=== PATIENT | female | born 1960 | race Caucasian/White ===

== ENCOUNTER 2016-06-09 09:24 | Emergency (ER) | payer OTHER ==
[~2016-06-09] VITALS: Ht 152.4 cm; Wt 94.6 kg
[~2016-06-09 09:24] MED LIST: ACET-1256 PO; ALBU1AER9 INH; BUPR200T2 PO; CALC-20 PO; FOLI1TAB7 PO; IMD/2 PO; LISI-461 PO; MULT-506 PO; OMEP20CA9 PO; SERT-234 PO
[2016-06-09 09:27] VITALS: TEMP 36.7; Ht 152.4 cm; Wt 94.6 kg
[2016-06-09] MEDS ORDERED: CHOL100010 (10:01)
[2016-06-09] MEDS ORDERED: ALBU18002 INH (10:01)
[2016-06-09] MEDS ORDERED: KETOROLAC TROMETHAMINE 60 MG/2 ML VIAL IM STA (10:06)
[2016-06-09] MEDS ORDERED: DEXAMETHASONE SOD INJ 10 MG/ML VIAL IM ONE (10:15)
--- NOTE | 2016-06-09 10:40 | DIAGNOSTIC IMAGING REPORT ---
L-SPINE MIN 4 VIEWS ROUTINE CLINICAL HISTORY: Low back pain with left-sided radiculopathy. COMPARISON STUDY: No previous studies for comparison. FINDINGS: Postsurgical changes are present within the abdomen. Bilateral tubal ligation clips are visualized. No acute fractures are visualized. There is moderate to marked disc space narrowing at the L4-5 and L5-S1 levels. There is minimal anterolisthesis of L4 and L5. There are no acute fractures. No destructive lesions are visualized. IMPRESSION: 1. No acute fractures 2. Advanced degenerative changes at the L4-5 and L5-S1 levels. Electronically signed by: Edwin Redman M.D. 06/09/2016 10:38 AM Dictated Date/Time: 06/09/2016 10:37 AM
[2016-06-09] MEDS ORDERED: OXYC1TAB3 PO (11:13)
[2016-06-09] MEDS ORDERED: PRED20TA PO (11:13)
[2016-06-09] MEDS ORDERED: CYCL10TA6 PO (11:13)
--- NOTE | 2016-06-09 11:13 | EMERGENCY ROOM VISIT NOTE ---
ED Visit Note First contact with patient: 09:44 CHIEF COMPLAINT: Low back pain radiating into left leg times one day HISTORY OF PRESENT ILLNESS: Patient is a 55-year-old white female who presents to emergency department for evaluation of low back pain radiating into the left leg. She states that her symptoms started yesterday morning. She notes that when she woke up she had a twinge of some discomfort in her left low back. She thought it was from how she slept, and tried doing some stretching which acutely worsened the pain. She states the pain is located in the left low back wrapping around the left hip to her groin and radiates down the front and back of her left leg. It stops at her knee. She notes twitching and muscle spasms in her left thigh. She tried taking ibuprofen yesterday which gave her little relief. She had difficulty finding positions to get comfortable and yesterday. She tried standing in a hot shower which made her symptoms worse. Today she feels better while she is laying in stabbing pain when she sits or when she stands. She denies a prior history of breast problems or injuries. She denies any numbness, tingling or weakness into the lower extremities. No bowel or bladder incontinence. No saddle anesthesias. REVIEW OF SYSTEMS: Review of systems as per HPI. All other systems reviewed were negative. 10 systems reviewed. PMH: Electronic medical records are reviewed and summarized as above/below. See Problem List. SOCIAL HISTORY: Patient lives at home. Employed. PHYSICAL EXAM: Vital Signs: Reviewed Nurse's notes. CONSTITUTIONAL: Patient is an uncomfortable-appearing 55-year-old white female who is awake and alert and laying supine on the gurney in mild distress due to her back pain. There is significant discomfort with position changes. CARDIOVASCULAR: Regular rate and rhythm, with normal S1 and S2, no murmur or gallop or rub is heard. No carotid bruits auscultated. No JVD. Peripheral pulses easily palpable. RESPIRATORY: Breath sounds equal and clear to auscultation without wheezes, rales, or rhonchi heard. Full and equal chest expansion without accessory muscle use or retractions. ABDOMEN: Bowel sounds are present. Abdomen is soft, nontender and nondistended. INTEGUMENTARY: No lesions or rash, normal skin turgor. LYMPH: No lymphadenopathy. SPINE: Examination of the patient's back does not demonstrate any ecchymosis, abrasions or outward signs of trauma. No erythema, increased warmth or induration. Patient has no midline discomfort to palpation over the lumbar spinous processes. She does have some discomfort over the left lumbar paraspinous musculature and over the PSIS and sciatic notch. No pain on the SI joint. She has increased pain with range of motion including rotation and flexion. EXTREMITIES: Leg lengths are symmetrical. Negative logroll bilaterally. Normal strength including dorsi-flexion and plantar flexion of the great toes and ankles and flexion and extension of the knees and flexion of the hips. Positive left-sided straight leg raise testing. Lower extremity DTRs are equal and symmetrical bilaterally. Distal pulses are easily palpable. Sensation light touch is intact over the lower extremities bilaterally. EMERGENCY DEPARTMENT COURSE: Patient was medicated with Toradol and Decadron IM. Lumbar spine x-rays were obtained. She had moderate arthritic changes noted at the L4-L5 and L5-S1 levels. Urine sample was dipped, and was clean without signs of infection. X-ray findings were reviewed with the patient. Conservative care measures were discussed. She only placed on a course of prednisone and was provided a prescription for Flexeril and for oxycodone to use for pain. She was encouraged on close follow-up with her primary care provider as she may require further care and evaluation with an MRI and possible referral to orthopedic spine surgery or pain management. Findings appear consistent with low back pain with acute lumbar radiculopathy, possibly related to nerve root impingement from the arthritic changes or disc disease. I do not suspect acute compression syndrome, cauda equina, diskitis, epidural abscess, hematoma or neurovascular compromise. The patient rated her discomfort a 7/10 at discharge. L-SPINE MIN 4 VIEWS ROUTINE CLINICAL HISTORY: Low back pain with left-sided radiculopathy. COMPARISON STUDY: No previous studies for comparison. FINDINGS: Postsurgical changes are present within the abdomen. Bilateral tubal ligation clips are visualized. No acute fractures are visualized. There is moderate to marked disc space narrowing at the L4-5 and L5-S1 levels. There is minimal anterolisthesis of L4 and L5. There are no acute fractures. No destructive lesions are visualized. IMPRESSION: 1. No acute fractures 2. Advanced degenerative changes at the L4-5 and L5-S1 levels. Problem List Medical Problems: (1) Abscess of left axilla Status: Resolved (2) Anxiety State Nos Status: Chronic (3) Asthma, Unspecified Status: Chronic (4) Diabetes mellitus Status: Chronic (5) Esophageal Reflux Status: Chronic (6) History of - hypertension Status: Chronic (7) Hypertension Status: Chronic (8) SBO (small bowel obstruction) Status: Resolved (9) Ulcerative colitis Status: Chronic Surgical Problems: (1) Colectomy Status: Resolved (2) Creation of ileostomy Status: Resolved Current/Historical Medications Scheduled Bupropion (Wellbutrin Sr), 200 MG PO BID Calcium Carbonate-Vitamin D (Calcium 600 + D), 1 TAB PO BID Folic Acid (Folvite), 1 MG PO DAILY Lisinopril (Zestril), 10 MG PO DAILY Multivitamin (Multivitamin), 1 TAB PO DAILY Omeprazole (Prilosec), 20 MG PO DAILY Prednisone (Prednisone), 0 PO DAILY Sertraline (Zoloft), 200 MG PO DAILY Scheduled PRN Acetaminophen (Tylenol), 1,000 MG PO TID PRN for Pain or Fever Albuterol Sulfate (Proair Respiclick), 2 PUFFS INH Q4 PRN for ASTHMA SYMPTOMS Cyclobenzaprine Hcl (Flexeril), 10 MG PO TID PRN for Muscle Spasms Loperamide Hcl (Imodium), 2 MG PO TID PRN for Diarrhea Oxycodone Immediate Rel Tab (Roxicodone Ir), 1-2 TAB PO Q4H PRN for Severe Pain Miscellaneous Medications Cholecalciferol (Vitamin D), Unknown Dose Allergies Coded Allergies: Adhesives (Verified Allergy, Mild, 06/09/16) Hydromorphone (Verified Allergy, Mild, ITCHINESS, 06/09/16) Vital Signs Date Time Temp Pulse Resp B/P Pulse Ox O2 Delivery O2 Flow Rate FiO2 06/09/16 11:24 76 20 166/103 98 06/09/16 10:44 77 20 143/96 96 06/09/16 09:27 36.7 81 20 158/105 97 Room Air Medications Administered Medications (Trade) Dose Ordered Sig/Kristen Route Start Time Stop Time Status Last Admin Dose Admin Ketorolac Tromethamine (Toradol Inj) 60 mg NOW STAT IM 06/09/16 10:06 4/22/17 10:07 DC 06/09/16 10:14 60 MG Dexamethasone Sodium Phosphate (Decadron Inj) 10 mg NOW ONCE IM 06/09/16 10:15 06/09/16 10:16 DC 06/09/16 10:14 10 MG Departure Information Impression Primary Impression: Low back pain Additional Impression: Left lumbar radiculopathy Prescriptions Cyclobenzaprine Hcl (FLEXERIL) 10 Mg Tab 10 MG PO TID Y for Muscle Spasms, #30 TAB Prov: Latoya Burks PA 06/09/16 Oxycodone Immediate Rel Tab (ROXICODONE IR) 5 Mg Tab 1-2 TAB PO Q4H Y for Severe Pain, #25 TAB For Initial Treatment Prov: Latoya Burks PA 06/09/16 Prednisone (Prednisone) 20 Mg Tab 0 PO DAILY, #18 TAB 3 DAILY FOR 3 DAYS, THEN 2 DAILY FOR 3 DAYS, THEN 1 DAILY FOR 3 DAYS. Prov: Latoya Burks PA 06/09/16 Referrals No Doctor, Assigned (PCP) Patient Instructions My [facility] Additional Instructions Prednisone 20mg: Once daily until the prescription is finished. It is best to take this earlier in the day as some patients note occasional difficulty falling asleep when taken in the late evening. Oxycodone (OxyIR) 5mg: Take 1-2 pills every four hours for breakthrough pain. Avoid alcohol, operating machinery or dangerous equipment, working on ladders or roofs, DRIVING, or situations where being under the influence may be dangerous. It is recommended to use an nuox-fgf-ncxigbe stool softener such as Colace, 100mg twice daily while taking this medication to avoid constipation. Cyclobenzaprine (Flexeril) 10 mg: Take 1 pills 3 times daily as needed for muscle spasms.. Avoid alcohol, operating machinery or dangerous equipment, working on ladders or roofs, DRIVING, or situations where being under the influence may be dangerous. Ibuprofen(Motrin, Advil) may be used for fever or pain. Use 600mg every six hours as needed. Take with food. Avoid using more than 2400mg in a 24 hour period. Do not use 2400mg per day for more than three consecutive days without physician direction. Prolonged inappropriate use can lead to stomach upset or ulcers. This medication can be taken if you need to drive, work, or perform activities which may be dangerous when taking narcotic pain medication. (AND/OR) Acetaminophen(Tylenol) may be used for fever or pain. Use 1000mg every six hours as needed. Avoid using more than 3000mg in a 24 hour period. This medication can be taken if you need to drive, work, or perform activities which may be dangerous when taking narcotic pain medication. Rest and avoid heavy lifting until your symptoms resolve and then gradually return to full activity. A good rule of thumb is if it hurts your back to perform a certain activity, then it should be avoided until you are healthy again. A heating pad, warm compresses, or a hot shower may help with tight muscles and can be done several times a day as needed. Continue current medications. Return to the ER immediately for any numbness, tingling, severe pain, loss of control of your bowels or bladder, inability to walk, or as needed. Follow up with your primary care physician within 3-5 days for a recheck of your current condition. Problem Qualifiers
[2016-06-09 11:24] VITALS: BP 166/103; PULSE 76; O2SAT 98
== END 2016-06-09 11:25 | disposition home or self-care (01) ==
LOC: C.EDB 09:24
DX: M54.5 Low back pain (principal); M54.16 Radiculopathy, lumbar region; I10 Essential (primary) hypertension; E11.9 Type 2 diabetes mellitus without complications; K21.9 Gastro-esophageal reflux disease without esophagitis; K58.9 Irritable bowel syndrome, unspecified; J45.909 Unspecified asthma, uncomplicated; F41.9 Anxiety disorder, unspecified; Z93.2 Ileostomy status; Z87.19 Personal history of other diseases of the digestive system; Z86.19 Personal history of other infectious and parasitic diseases; Z79.899 Other long term (current) drug therapy; Z88.5 Allergy status to narcotic agent; Z91.09 Other allergy status, other than to drugs and biological substances

== ENCOUNTER → 2016-12-03 | Outpatient (CLI) | payer OTHER ==
[~2016-12-03] MED LIST changes: +ALBU18002 INH; -ALBU1AER9 INH; +CHOL100010; +OXYC1TAB3 PO; +PRED20TA PO
--- NOTE | 2016-12-06 07:45 | MAMMOGRAPHY REPORT ---
BILATERAL DIGITAL SCREENING MAMMOGRAM TOMOSYNTHESIS WITH CAD: 12/03/2016 CLINICAL HISTORY: Routine screening. Patient has no complaints. TECHNIQUE: Breast tomosynthesis in addition to standard 2D mammography was performed. Current study was also evaluated with a Computer Aided Detection (CAD) system. COMPARISON: Comparison is made to exams dated: 10/18/2014 mammogram, 10/13/2013 mammogram, 01/17/2012 mammogram, 01/17/2012 ultrasound, 01/03/2012 mammogram - [facility], and 10/14/2008. BREAST COMPOSITION: There are scattered areas of fibroglandular density in both breasts. FINDINGS: There is a asymmetry in the posterior left breast along the posterior nipple line on the M LO view, 12 cm distal to the nipple. No definite corresponding abnormality is seen on the CC view. Additional spot compression tomosynthesis views and possible ultrasound are recommended. There is a grouping of microcalcifications in the lower inner posterior left breast for which additional spot ma gnification views are recommended. There are a few benign rim calcifications elsewhere in the breasts. No other suspicious mass, archite ctural distortion or cluster of microcalcifications is seen. IMPRESSION: ACR BI-RADS CATEGORY 0: INCOMPLETE EVALUATION: NEED ADDITIONAL IMAGING EVALUATION The asymmetry in the posterior left breast on the MLO view, and small grouping of microcalcifications in the lower inner posterior left breast need additional imaging evaluation. The patient will be called to schedule an appointment. Approximately 10% of breast cancers are not detected with mammography. A negative mammographic report should not delay biopsy if a clinically suggestive mass is present. Tita Holliday M.D. ay/:12/04/2016 17:01:09 Property And Equipment Clerk: Sarah Ochoa, [facility] letter sent: Addl Imaging 0 BI-RADS Code: ACR BI-RADS Category 0: Incomplete Evaluation: Need Additional Imaging Evaluation
== END | disposition home or self-care (01) ==
LOC: C.MAMM 14:23
PROVIDERS: ATTEND Nurse Practitioner Adult Health
DX: Z12.31 Encounter for screening mammogram for malignant neoplasm of breast (principal); N64.89 Other specified disorders of breast

== ENCOUNTER → 2016-12-17 | Outpatient (CLI) | payer OTHER ==
[~2016-12-17] MED LIST changes: -OXYC1TAB3 PO; -PRED20TA PO
--- NOTE | 2016-12-17 14:57 | MAMMOGRAPHY REPORT ---
UNILATERAL LEFT DIGITAL DIAGNOSTIC MAMMOGRAM TOMOSYNTHESIS: 12/17/2016 CLINICAL HISTORY: 55-year-old woman called back from screening mammography for a right breast asymmet ry and grouped microcalcification. TECHNIQUE: Spot compression 2-D and tomosynthesis left CC and MLO views, and spot magnification left CC and ML views were obtained. COMPARISON: Comparison is made to exams dated: 12/03/2016 mammogram, 10/18/2014 mammogram, 10/13/2013 mammogram, 01/17/2012 mammogram, 01/17/2012 ultrasound, and 01/03/2012 mammogram - [facility]. BREAST COMPOSITION: There are scattered areas of fibroglandular density in the left breast. FINDINGS: The spot magnification views of the left breast demonstrate a small 3 mm grouping of puncta te and somewhat coarse microcalcifications in the lower inner posterior breast. When comparing back to available prior mammograms, the calcifications have been present and appears similar dating back t o at least 01/03/2012, suggesting benignity. Possible changes in visualization may be due to technic al parameters with current [employer] equipment and prior [employer] equipment. No other suspicious calcificati ons are seen in the visualized left breast. A 7 mm asymmetry persists in the superior posterior left breast on the spot compression MLO view. Th e corresponding tomosynthesis images has the appearance of normal fibroglandular tissue. There is no associated architectural distortion or calcification. When comparing back to prior available mammog benito, this asymmetry appears similar to the 01/03/2012 and 10/14/2008 exams, suggesting benignity. N o further workup is needed at this time. IMPRESSION: ACR-BI-RADS CATEGORY 3: PROBABLY BENIGN 1. An asymmetry in the superior posterior left breast has no associated architectural distortion and appears very similar in size and visual appearance dating back to at least 2008, therefore considere d benign. 2. A 3 mm grouping of microcalcifications in the lower inner posterior left breast appear similar da ting back to 2011, suggesting benignity. Given slight increased conspicuity, which could be due to t echnical parameters, a short interval follow-up left diagnostic mammogram including spot magnificatio n views is recommended in 6 months. These results and recommendations were discussed with the patient at the time of the exam. Approximately 10% of breast cancers are not detected with mammography. A negative mammographic report should not delay biopsy if a clinically suggestive mass is present. Tita Holliday M.D. ay/:12/17/2016 12:11:24 Fertilizer Applicator: Sarah Ochoa [facility] letter sent: Follow Up Recommended 3 BI-RADS Code: ACR-BI-RADS Category 3: Probably Benign
== END | disposition home or self-care (01) ==
LOC: C.MAMM 10:35
PROVIDERS: ATTEND Nurse Practitioner Adult Health
DX: R92.0 Mammographic microcalcification found on diagnostic imaging of breast (principal); N64.89 Other specified disorders of breast

== ENCOUNTER 2017-05-12 03:37 | Emergency (ER) | payer OTHER ==
[~2017-05-12] VITALS: Ht 152.4 cm; Wt 90.2 kg
[~2017-05-12 03:37] MED LIST changes: -CHOL100010; +CHOL100010 PO; -FOLI1TAB7 PO; +FOLI1TAB8 PO
[2017-05-12 03:40] VITALS: TEMP 37.1; Ht 152.4 cm; Wt 90.2 kg
[2017-05-12] MEDS ORDERED: ONDANSETRON INJ 2 MG/ML 2 ML VIAL IV STA ×2 (04:10→08:55)
[2017-05-12] MEDS ORDERED: MoRPHine SULFATE 4 MG/ML 1 ML CARP\\VIAL IV STA ×2 (04:10→08:55)
[2017-05-12] MEDS ORDERED: SODIUM CHLORIDE 0.9% 1000ML 1,000 ML IV STA ×2 (04:10→08:30)
--- NOTE | 2017-05-12 04:18 | EMERGENCY ROOM VISIT NOTE ---
History Report prepared by Johan: Mickie Newsome Under the Supervision of: Dr. Shyanne Gutierrez, [facility]. First contact with patient: 03:58 Chief Complaint: GI ASSESSMENT Stated Complaint: SBO History of Present Illness The patient is a 56 year old female who presents to the Emergency Room with complaints of constant abdominal pain since 1600 yesterday. She notes nausea and two episodes of vomiting. She denies any blood in her urine. She has a history of ulcerative colitis and total colectomy. She has a J-pouch and notes that she normally passes stools, though she had an irregular stool two hours ago. She denies any bloody stools. She notes they have not been consistent. She denies any fevers or chills. She believes she has a bowel obstruction, because the pain is similar to past SBO. Source of History: patient Onset: 1600 yesterday Position: abdomen Timing: constant Associated Symptoms: + nausea, + vomiting, No fevers, No chills Note: She denies any blood is urine or bloody stools. Review of Systems See HPI for pertinent positives & negatives. A total of 10 systems reviewed and were otherwise negative. Past Medical & Surgical Medical Problems: (1) Abscess of left axilla (2) Anxiety State Nos (3) Asthma, Unspecified (4) Diabetes mellitus (5) Esophageal Reflux (6) History of - hypertension (7) Hypertension (8) J pouch (9) SBO (small bowel obstruction) (10) Ulcerative colitis (11) Ulcerative colitis Surgical Problems: (1) Colectomy (2) Creation of ileostomy (3) History of total colectomy Family History Family history was reviewed; no changes noted. Social History Smoking Status: Never Smoker Alcohol Use: none Marital Status: single Housing Status: lives with family Occupation Status: employed Current/Historical Medications Scheduled Bupropion (Wellbutrin Sr), 200 MG PO BID Calcium Carbonate-Vitamin D (Calcium 600 + D), 1 TAB PO BID Cholecalciferol (Vitamin D), 1 TAB PO DAILY Citalopram Hydrobromide (Citalopram Hydrobromide), 0.5 TAB PO DAILY Folic Acid (Folvite), 1 MG PO DAILY Lisinopril (Zestril), 10 MG PO DAILY Multivitamin (Multivitamin), 1 TAB PO DAILY Scheduled PRN Acetaminophen (Tylenol), 1,000 MG PO TID PRN for Pain or Fever Albuterol Sulfate (Proair Respiclick), 2 PUFFS INH Q4 PRN for ASTHMA SYMPTOMS Loperamide Hcl (Imodium), 2 MG PO TID PRN for Diarrhea Allergies Coded Allergies: Adhesives (Verified Allergy, Mild, 05/12/17) Hydromorphone (Verified Allergy, Mild, ITCHINESS, 05/12/17) Physical Exam Vital Signs Date Time Temp Pulse Resp B/P (MAP) Pulse Ox O2 Delivery O2 Flow Rate FiO2 05/12/17 11:55 83 153/90 95 Room Air 05/12/17 10:15 73 17 157/88 97 Room Air 05/12/17 09:36 78 150/100 05/12/17 08:26 75 16 152/80 97 Room Air 05/12/17 06:58 78 14 138/100 95 Room Air 05/12/17 06:15 69 16 159/71 97 Room Air 05/12/17 04:46 76 18 161/113 96 Room Air 05/12/17 03:40 37.1 88 20 160/84 98 Room Air Physical Exam GENERAL: alert, ill-appearing, well nourished, no distress, non-toxic EYE EXAM: normal conjunctiva, PERRL and EOM's grossly intact OROPHARYNX: no exudate, no erythema, lips, buccal mucosa, and tongue normal and mucous membranes are moist NECK: supple, no nuchal rigidity, no adenopathy, non-tender LUNGS: Clear to auscultation. Normal chest wall mechanics HEART: no murmurs, S1 normal and S2 normal ABDOMEN: abdomen soft, mild generalized tenderness, decreased bowel sounds, no masses, no rebound or guarding, mild tympany to percussion. Multiple well- healed surgical scars and prior site of ostomy noted. BACK: Back is symmetrical on inspection and there is no deformity, no midline tenderness, no CVA tenderness. SKIN: no rashes and no bruising UPPER EXTREMITIES: upper extremities are grossly normal. LOWER EXTREMITIES: No pitting edema. NEURO EXAM: Normal sensorium, cranial nerves II-XII grossly intact, normal speech, no gross weakness of arms, no gross weakness of legs. Medical Decision & Procedures ER Provider Diagnostic Interpretation: Radiology results have been interpreted by the radiologist and reviewed by me. CHEST ONE VIEW PORTABLE CLINICAL HISTORY: 56 years-old Female presenting with vomiting. TECHNIQUE: Portable upright AP view of the chest was obtained. COMPARISON: 04/21/2012. FINDINGS: Cardiomediastinal silhouette normal. Lungs and pleural spaces clear. Osseous structures normal. Upper abdomen normal. IMPRESSION: 1. No acute cardiopulmonary disease. Electronically signed by: Ahmet Mac M.D. 05/12/2017 6:18 AM Dictated Date/Time: 05/12/2017 6:17 AM ABD/PELVIS IV AND ORAL CONT CLINICAL HISTORY: 56 years-old Female presenting with abd pain, n/v, clinical concern for small bowel obstruction. TECHNIQUE: Multidetector CT of the abdomen and pelvis was performed after the administration of oral and intravenous contrast. IV contrast: 120 mL of Optiray 320. A dose lowering technique was used consistent with the principles of ALARA (as low as reasonably achievable). COMPARISON: 09/17/2014. CT DOSE (mGy.cm): The estimated cumulative dose is 737.84 mGy.cm. FINDINGS: Moving Consultant topogram: Unremarkable. Lung bases: Mosaic attenuation suggest small airways disease. Minimal dependent changes likely atelectasis. Normal heart size. No pericardial or pleural effusion. Liver: Normal morphology. Suspected hepatic steatosis. No focal lesion. Patent hepatic vasculature. Biliary: No intrahepatic or extrahepatic biliary ductal dilatation. Normal gallbladder. Pancreas: Normal. Spleen: Normal. Adrenal glands: Normal. Kidneys and ureters: Nonobstructing 3 mm calculus at the lower pole the right kidney. Few subcentimeter hypodensities in the left kidney indeterminate but likely simple cysts. No left renal calculi. No hydronephrosis. Ureters normal. Bladder: Normal. Extension of the bladder towards the right pelvic sidewall suggests ligamentous laxity. Pelvic organs: Uterus normal. Ovaries not well visualized. Bowel: Postsurgical changes of suspected total proctocolectomy with ileal pouch anal anastomosis. Small bowel anastomotic suture lines also evident in the right anterior abdomen. The anastomosis at this site appears patent. Given the apposition to the anterior abdominal wall at this site and overlying infiltration, this may suggest prior site of an ostomy. Oral contrast has not transited through the entire length of small bowel. Small bowel is distended in the mid and left abdomen with a diameter of nearly 4 cm. Feces evidence in a loop of small bowel in the left lower quadrant immediately proximal to another site of an enteroenteric anastomosis (series 3 image 218). There is abrupt transition point at this site. Beyond this, small bowel is decompressed. Peritoneal cavity: Trace fluid in the abdomen between the leaves of small bowel. Trace perienteric fat stranding. No pneumoperitoneum or pneumatosis. Lymph nodes: No enlarged lymph nodes in the abdomen or pelvis. Vasculature: Atherosclerosis of the normal caliber abdominal aorta. IVC patent. Abdominal wall: Postsurgical changes in the right mid abdomen. No focal fluid collection. Diastases of the rectus abdominis with possible hernia repair. Musculoskeletal: Degenerative changes of the spine. IMPRESSION: 1. Findings consistent with small bowel obstruction at a site of an enteroenteric anastomosis in the left abdomen. 2. Postsurgical changes of total proctocolectomy with ileal pouch anal anastomosis. Two sites of enteroenteric anastomoses evident, one in the right abdomen and one in the left abdomen. 3. Reactive trace amount of abdominal ascites. No pneumatosis or evidence of perforation. 4. Nonobstructing 3 mm right renal calculus. 5. Suspected hepatic steatosis. The report will be called/faxed according to standard departmental protocol. Electronically signed by: Ahmet Mac M.D. 05/12/2017 7:35 AM Dictated Date/Time: 05/12/2017 7:24 AM Laboratory Results 05/12/17 04:00 Red Blood Count 5.07, Mean Corpuscular Volume 88.6, Mean Corpuscular Hemoglobin 30.8, Mean Corpuscular Hemoglobin Concent 34.7, Mean Platelet Volume 9.0, Neutrophils (%) (Auto) 78.1, Lymphocytes (%) (Auto) 18.2, Monocytes (%) (Auto) 2.9, Eosinophils (%) (Auto) 0.5, Basophils (%) (Auto) 0.1, Neutrophils # (Auto) 7.53, Lymphocytes # (Auto) 1.75, Monocytes # (Auto) 0.28, Eosinophils # (Auto) 0.05, Basophils # (Auto) 0.01 05/12/17 04:00 Test 05/12/17 04:00 05/12/17 04:22 White Blood Count 9.64 K/uL (4.8-10.8) Red Blood Count 5.07 M/uL (4.2-5.4) Hemoglobin 15.6 g/dL (12.0-16.0) Hematocrit 44.9 % (37-47) Mean Corpuscular Volume 88.6 fL (80-100) Mean Corpuscular Hemoglobin 30.8 pg (25-34) Mean Corpuscular Hemoglobin Concent 34.7 g/dl (32-36) Platelet Count 232 K/uL (130-400) Mean Platelet Volume 9.0 fL (7.4-10.4) Neutrophils (%) (Auto) 78.1 % Lymphocytes (%) (Auto) 18.2 % Monocytes (%) (Auto) 2.9 % Eosinophils (%) (Auto) 0.5 % Basophils (%) (Auto) 0.1 % Neutrophils # (Auto) 7.53 K/uL (1.4-6.5) Lymphocytes # (Auto) 1.75 K/uL (1.2-3.4) Monocytes # (Auto) 0.28 K/uL (0.11-0.59) Eosinophils # (Auto) 0.05 K/uL (0-0.5) Basophils # (Auto) 0.01 K/uL (0-0.2) RDW Standard Deviation 40.1 fL (36.4-46.3) RDW Coefficient of Variation 12.6 % (11.5-14.5) Immature Granulocyte % (Auto) 0.2 % Immature Granulocyte # (Auto) 0.02 K/uL (0.00-0.02) Anion Gap 10.0 mmol/L (3-11) Est Creatinine Clear Calc Drug Dose 54.3 ml/min Estimated GFR () 62.0 Estimated GFR (Non- 53.5 BUN/Creatinine Ratio 13.7 (10-20) Calcium Level 9.7 mg/dl (8.5-10.1) Total Bilirubin 0.7 mg/dl (0.2-1) Aspartate Amino Transf (AST/SGOT) 19 U/L (15-37) Alanine Aminotransferase (ALT/SGPT) 28 U/L (12-78) Alkaline Phosphatase 80 U/L (45-117) Troponin I < 0.015 ng/ml (0-0.045) Total Protein 8.1 gm/dl (6.4-8.2) Albumin 4.0 gm/dl (3.4-5.0) Globulin 4.1 gm/dl (2.5-4.0) Albumin/Globulin Ratio 1.0 (0.9-2) Lipase 136 U/L (73-393) Bedside Lactic Acid Venous 1.42 mmol/L (0.90-1.70) Laboratory results per my review. Medications Administered Medications (Trade) Dose Ordered Sig/Kristen Route Start Time Stop Time Status Last Admin Dose Admin Ondansetron HCl (Zofran Inj) 4 mg NOW STAT IV 05/12/17 04:10 05/12/17 04:12 DC 05/12/17 04:22 4 MG Sodium Chloride 1,000 ml @ 999 mls/hr Q1H1M STAT IV 05/12/17 04:10 05/12/17 05:10 DC 05/12/17 04:10 999 MLS/HR Morphine Sulfate (MoRPHine SULFATE INJ) 4 mg NOW STAT IV 05/12/17 04:10 05/12/17 04:13 DC 05/12/17 04:21 4 MG Sodium Chloride 1,000 ml @ 125 mls/hr Q8H STAT IV 05/12/17 08:30 05/12/17 12:46 DC 05/12/17 08:30 125 MLS/HR Morphine Sulfate (MoRPHine SULFATE INJ) 4 mg NOW STAT IV 05/12/17 08:55 05/12/17 08:56 DC 05/12/17 09:01 4 MG Ondansetron HCl (Zofran Inj) 4 mg NOW STAT IV 05/12/17 08:55 05/12/17 08:56 DC 05/12/17 09:00 4 MG ECG Per My Interpretation Indication: abdominal pain Rate (beats per minute): 78 Rhythm: normal sinus Findings: no acute ischemic change, other (normal intervals, normal axis ) ED Course 0406: The patient was evaluated in room A11B. A complete history and physical exam was performed. 0410: Ordered Morphine Sulfate 4 mg IV, Sodium Chloride 1,000 ml @ 999 mls/hr IV , and Zofran 4 mg IV 0620: I reassessed the patient at this time. She is slowly sipping the contrast. She has not had another episode of emesis. 0815: Patient updated on all results. Patient prefers transfer to [place] where her [place] doctors are including her GI specialist and prior surgeon. 0857: No return contact yet from the [facility] in [place]. Additional morphine and Zofran ordered on the patient, maintenance IV fluids running. 0908: Discussed case with Dr. Barahona, [facility] in [place], who will accept the patient in transfer. Would like NG tube placed. No additional orders. Per the transfer center they will call back with a bed assignment and a number for our nurse to give report. They will arrange transportation. Medical Decision Prior records/ancillary studies reviewed. Triage Nursing notes reviewed. The patient's history was concerning for abdominal pain. Differential diagnosis: Etiologies such as appendicitis, diverticulitis, PUD, biliary pathology, UTI, pancreatitis, obstruction, mesenteric ischemia, aortic pathology, infections, inflammatory bowel disease, renal colic, as well as others were entertained. Patient suspicious of diagnosis at time of arrival. Patient found to have small bowel obstruction likely secondary to prior surgeries and adhesions. I do not suspect additional occult infection. Patient improved with pain and nausea medications here, kept on IV fluids. Given patient's history and specialists through the [facility], patient requested investigation and possible transfer to the [facility] where her specialists are. They accepted the patient in transfer and stated they would arrange transportation. Patient hemodynamically stable throughout, well-appearing at time of signout. All transfer paperwork signed on the patient in morning doc was made aware that she was awaiting transportation at this time. Medication Reconcilliation Current Medication List: was personally reviewed by me Blood Pressure Screening Patient's blood pressure: Elevated blood pressure Blood pressure disposition: Elevated BP felt to be situational Impression Primary Impression: SBO (small bowel obstruction) Additional Impression: Nausea & vomiting Scribe Attestation The scribe's documentation has been prepared under my direction and personally reviewed by me in its entirety. I confirm that the note above accurately reflects all work, treatment, procedures, and medical decision making performed by me. Departure Information Dispostion Transfer Acute Care Facility Referrals No Doctor, Assigned (PCP) Patient Instructions My [facility] Problem Qualifiers Additional Impression: Nausea & vomiting Vomiting type: unspecified Vomiting Intractability: non-intractable Qualified Codes: R11.2 - Nausea with vomiting, unspecified
[2017-05-12] MEDS ORDERED: CITA20TA4 PO (04:27)
[2017-05-12 04:49] LABS: BASO % 0.1 %; BASO ABS # 0.01 K/uL (0-0.2); EOS % 0.5 %; EOS ABS # 0.05 K/uL (0-0.5); HEMATOCRIT 44.9 % (37-47); HEMOGLOBIN 15.6 g/dL (12.0-16.0); IG# 0.02 K/uL (0.00-0.02); LYMPH % 18.2 %; LYMPH ABS # 1.75 K/uL (1.2-3.4); MEAN CELL VOLUME 88.6 fL (80-100); MEAN CORPUSCULAR HEMOGLOBIN 30.8 pg (25-34); MEAN CORPUSCULAR HGB CONC 34.7 g/dl (32-36); MONO % 2.9 %; MONO ABS # 0.28 K/uL (0.11-0.59); NEUT % 78.1 %; NEUT ABS # 7.53 K/uL (1.4-6.5); PLATELET COUNT 232 K/uL (130-400); RED CELL DISTRIBUTION WIDTH CV 12.6 % (11.5-14.5); RED CELL DISTRIBUTION WIDTH SD 40.1 fL (36.4-46.3); WHITE BLOOD COUNT 9.64 K/uL (4.8-10.8)
[2017-05-12 04:59] LABS: ALT/SGPT 28 U/L (12-78); AST/SGOT 19 U/L (15-37); BLOOD UREA NITROGEN 15 mg/dl (7-18); CALCIUM 9.7 mg/dl (8.5-10.1); CARBON DIOXIDE 25 mmol/L (21-32); CREATININE 1.13 mg/dl (0.60-1.20); GLUCOSE 177 mg/dl (70-99); LIPASE 136 U/L (73-393); POTASSIUM 4.2 mmol/L (3.5-5.1); SODIUM 136 mmol/L (136-145)
[2017-05-12] MEDS ORDERED: OPTIRAY 320 IV PRN (05:00)
[2017-05-12 05:04] LABS: ALKALINE PHOSPHATASE 80 U/L (45-117); TOTAL PROTEIN 8.1 gm/dl (6.4-8.2)
--- NOTE | 2017-05-12 06:19 | DIAGNOSTIC IMAGING REPORT ---
CHEST ONE VIEW PORTABLE CLINICAL HISTORY: 56 years-old Female presenting with vomiting. TECHNIQUE: Portable upright AP view of the chest was obtained. COMPARISON: 04/21/2012. FINDINGS: Cardiomediastinal silhouette normal. Lungs and pleural spaces clear. Osseous structures normal. Upper abdomen normal. IMPRESSION: 1. No acute cardiopulmonary disease. Electronically signed by: Ahmet Mac M.D. 05/12/2017 6:18 AM Dictated Date/Time: 05/12/2017 6:17 AM
--- NOTE | 2017-05-12 07:36 | DIAGNOSTIC IMAGING REPORT ---
ABD/PELVIS IV AND ORAL CONT CLINICAL HISTORY: 56 years-old Female presenting with abd pain, n/v, clinical concern for small bowel obstruction. TECHNIQUE: Multidetector CT of the abdomen and pelvis was performed after the administration of oral and intravenous contrast. IV contrast: 120 mL of Optiray 320. A dose lowering technique was used consistent with the principles of ALARA (as low as reasonably achievable). COMPARISON: 09/17/2014. CT DOSE (mGy.cm): The estimated cumulative dose is 737.84 mGy.cm. FINDINGS: Cognos topogram: Unremarkable. Lung bases: Mosaic attenuation suggest small airways disease. Minimal dependent changes likely atelectasis. Normal heart size. No pericardial or pleural effusion. Liver: Normal morphology. Suspected hepatic steatosis. No focal lesion. Patent hepatic vasculature. Biliary: No intrahepatic or extrahepatic biliary ductal dilatation. Normal gallbladder. Pancreas: Normal. Spleen: Normal. Adrenal glands: Normal. Kidneys and ureters: Nonobstructing 3 mm calculus at the lower pole the right kidney. Few subcentimeter hypodensities in the left kidney indeterminate but likely simple cysts. No left renal calculi. No hydronephrosis. Ureters normal. Bladder: Normal. Extension of the bladder towards the right pelvic sidewall suggests ligamentous laxity. Pelvic organs: Uterus normal. Ovaries not well visualized. Bowel: Postsurgical changes of suspected total proctocolectomy with ileal pouch anal anastomosis. Small bowel anastomotic suture lines also evident in the right anterior abdomen. The anastomosis at this site appears patent. Given the apposition to the anterior abdominal wall at this site and overlying infiltration, this may suggest prior site of an ostomy. Oral contrast has not transited through the entire length of small bowel. Small bowel is distended in the mid and left abdomen with a diameter of nearly 4 cm. Feces evidence in a loop of small bowel in the left lower quadrant immediately proximal to another site of an enteroenteric anastomosis (series 3 image 218). There is abrupt transition point at this site. Beyond this, small bowel is decompressed. Peritoneal cavity: Trace fluid in the abdomen between the leaves of small bowel. Trace perienteric fat stranding. No pneumoperitoneum or pneumatosis. Lymph nodes: No enlarged lymph nodes in the abdomen or pelvis. Vasculature: Atherosclerosis of the normal caliber abdominal aorta. IVC patent. Abdominal wall: Postsurgical changes in the right mid abdomen. No focal fluid collection. Diastases of the rectus abdominis with possible hernia repair. Musculoskeletal: Degenerative changes of the spine. IMPRESSION: 1. Findings consistent with small bowel obstruction at a site of an enteroenteric anastomosis in the left abdomen. 2. Postsurgical changes of total proctocolectomy with ileal pouch anal anastomosis. Two sites of enteroenteric anastomoses evident, one in the right abdomen and one in the left abdomen. 3. Reactive trace amount of abdominal ascites. No pneumatosis or evidence of perforation. 4. Nonobstructing 3 mm right renal calculus. 5. Suspected hepatic steatosis. The report will be called/faxed according to standard departmental protocol. Electronically signed by: Ahmet Mac M.D. 05/12/2017 7:35 AM Dictated Date/Time: 05/12/2017 7:24 AM
[2017-05-12 11:55] VITALS: BP 153/90; PULSE 83; O2SAT 95
== END 2017-05-12 09:38 | disposition short-term general hospital (02) ==
LOC: C.EDB 03:39 → C.EDA 09:38
DX: K56.609 Unspecified intestinal obstruction, unspecified as to partial versus complete obstruction (principal); R11.2 Nausea with vomiting, unspecified; F41.9 Anxiety disorder, unspecified; J45.909 Unspecified asthma, uncomplicated; E11.9 Type 2 diabetes mellitus without complications; K21.9 Gastro-esophageal reflux disease without esophagitis; I10 Essential (primary) hypertension; Z93.4 Other artificial openings of gastrointestinal tract status; K51.90 Ulcerative colitis, unspecified, without complications; Z79.899 Other long term (current) drug therapy; Z91.048 Other nonmedicinal substance allergy status; Z88.5 Allergy status to narcotic agent

== ENCOUNTER → 2017-06-17 | Outpatient (CLI) | payer OTHER ==
[~2017-06-17] MED LIST changes: +CITA20TA4 PO; -OMEP20CA9 PO; -SERT-234 PO
--- NOTE | 2017-06-17 14:13 | MAMMOGRAPHY REPORT ---
UNILATERAL LEFT DIGITAL DIAGNOSTIC MAMMOGRAM TOMOSYNTHESIS WITH CAD: 06/17/2017 CLINICAL HISTORY: 56-year-old woman presents for follow-up in the left breast. She presents to reass ess a probably benign cluster of round and punctate microcalcifications in the lower inner posterior breast. The previously observed asymmetry in the superior posterior left breast on the MLO view demo nstrated long-term mammographic stability and was felt to represent normal fibroglandular tissue. TECHNIQUE: Left breast tomosynthesis in addition to standard 2D mammography was performed. Spot magn ification left CC and ML views were also obtained. Current study was also evaluated with a Computer Aided Detection (CAD) system. COMPARISON: Comparison is made to exams dated: 12/17/2016 mammogram, 12/03/2016 mammogram, 10/18/2014 mammogram, 10/13/2013 mammogram, 01/17/2012 mammogram, and 01/17/2012 ultrasound - [facility]. BREAST COMPOSITION: There are scattered areas of fibroglandular density in the left breast. FINDINGS: The parenchymal pattern of the left breast is similar to prior mammograms. There is stable asymmetry in the slightly superior posterior left breast on the MLO view, that appears similar to al l available prior mammograms dating back to at least 2011 and likely 2007, suggesting benign fibrogla ndular tissue. No new suspicious masses, asymmetries or areas of architectural distortion are identi fied. The spot magnification views of the left breast redemonstrate a small, 3.5 mm cluster of round and punctate microcalcifications, that is unchanged comparing to the spot magnification views perfor med on 12/17/2016, and also likely stable dating back to 2011 based on full-field mammogram views. A nother six-month follow-up left diagnostic mammogram including spot magnification views is recommende d to ensure longer stability, given differences in equipment and technique. Annual right mammography will also be due at that time. IMPRESSION: ACR-BI-RADS CATEGORY 3: PROBABLY BENIGN Stable mammographic appearance of the left breast including a small 3.5 mm cluster of round and punct ate microcalcifications in the lower inner posterior breast. Another six-month follow-up left diagno stic mammogram including spot magnification views is recommended to ensure longer stability. Annual right mammography will also be due at that time. These results and recommendations were discussed with the patient at the time of the exam. Approximately 10% of breast cancers are not detected with mammography. A negative mammographic report should not delay biopsy if a clinically suggestive mass is present. Tita Holliday M.D. ay/:06/17/2017 10:41:55 Waistline Joiner Lockstitch: Sarah Ochoa, [facility] letter sent: Follow Up Recommended 3 BI-RADS Code: ACR-BI-RADS Category 3: Probably Benign
== END | disposition home or self-care (01) ==
LOC: C.MAMM 09:59
PROVIDERS: ATTEND Physician Assistant Medical
DX: R92.0 Mammographic microcalcification found on diagnostic imaging of breast (principal)

== ENCOUNTER 2018-04-13 01:40 | Inpatient (IN) ==
[2018-04-13] MEDS ORDERED: MoRPHine SULFATE 10 MG/ML CARP/VIAL IM STA (03:00)
[2018-04-13] MEDS ORDERED: SODIUM CHLORIDE 0.9% 1000ML 1,000 ML IV ONE (03:00)
[2018-04-13] MEDS ORDERED: METOCLOPRAMIDE HCL INJ 5 MG/ML 2 ML VIAL IV STA (03:00)
[2018-04-13 03:17] LABS: Basophils # (auto) 0.02 K/uL (0-0.2); Basophils % (auto) 0.2 %; Eosinophils # (auto) 0.12 K/uL (0-0.5); Eosinophils % (auto) 1.2 %; Hematocrit (blood only) 41.9 % (37-47); Hemoglobin 14.5 g/dL (12.0-16.0); Immature Granulocytes # (auto) 0.02 K/uL (0.00-0.02); Immature Granulocytes % (auto) 0.2 %; Lymphocytes # (auto) 2.12 K/uL (1.2-3.4); Lymphocytes % (auto) 21.5 %; Mean Corpuscular Hgb Conc 34.6 g/dL (32-36); Mean Platelet Volume 9.2 fL (7.4-10.4); Monocytes # (auto) 0.41 K/uL (0.11-0.59); Monocytes % (auto) 4.1 %; Neutrophils # (auto) 7.19 K/uL (1.4-6.5); Neutrophils % (auto) 72.8 %; Platelet Count 238 K/uL (130-400); RDW Coefficient of Variation 12.6 % (11.5-14.5); RDW Standard Deviation 40.4 fL (36.4-46.3); Red Blood Count 4.76 M/uL (4.2-5.4); White Blood Count 9.88 K/uL (4.8-10.8)
[2018-04-13] MEDS ORDERED: MoRPHine SULFATE 10 MG/ML CARP/VIAL IV STA (03:18)
[2018-04-13 03:21] LABS: Albumin Level 3.8 gm/dl (3.4-5.0); BUN Creatinine Ratio 14.5 (10-20); Calcium 9.3 mg/dl (8.5-10.1); Creatinine Clr Calc Pharmacy 68.2 ml/min; Est GFR (Non-African American) 67.3; Potassium 3.9 mmol/L (3.5-5.1)
[2018-04-13 03:24] LABS: Bilirubin,Total 0.5 mg/dl (0.2-1); Total Protein 7.8 gm/dl (6.4-8.2)
[2018-04-13] MEDS ORDERED: IOVERSOL 100ml IV PRN (04:03)
--- NOTE | 2018-04-13 04:37 | Emergency Department Note ---
History of Present Illness General Chief complaint: Abdominal Pain Stated complaint: ABD PAIN,NAUSEA,POSSIBLE SBO Source: patient and family Mode of arrival: ambulatory Limitations: no limitations History of Present Illness Onset (ago): hour(s) 6 Location: abdomen Radiation: non-radiation Severity: mild Pain Consistency: + constant Maximum Pain Intensity: 10 Quality: + aching Relieved By: + none Exacerbated By: + none Associated symptoms: + denies other symptoms Treatments prior to arrival: none This is a 57-year-old female who presents emergency department complaining of severe abdominal pain. The patient reports she has a history of small bowel obstructions and feels she has another one. She has not vomited and but however has not had a bowel movement in the past 6 hours which she states is not normal for her. Patient has been transferred previously to [facility] in the past however she is requesting to stay here. Home Medications Home Medications Medication Instructions Recorded Confirmed Type albuterol sulfate 2 puff INHALATION Q4 PRN 04/13/18 04/13/18 History bupropion HCl 200 mg PO BID 04/13/18 04/13/18 History calcium carbonate-vitamin D3 1 tab PO BID 04/13/18 04/13/18 History cholecalciferol (vitamin D3) 1,000 unit PO DAILY 04/13/18 04/13/18 History [Vitamin D3] citalopram 20 mg PO DAILY 04/13/18 04/13/18 History folic acid 1 mg PO DAILY 04/13/18 04/13/18 History lisinopril 10 mg PO DAILY 04/13/18 04/13/18 History loperamide 2 mg PO TID PRN 04/13/18 04/13/18 History multivitamin 1 tab PO DAILY 04/13/18 04/13/18 History Allergies Allergy/AdvReac Type Severity Reaction Status Date / Time adhesive Allergy Mild Rash Verified 04/13/18 05:09 hydromorphone Allergy Mild ITCHINESS Verified 04/13/18 05:09 Past Med/Surg History Medical History Anxiety Asthma Degenerative disc disease Fusion of spine Hypertension Osteoarthritis Surgical History History of bilateral tubal ligation History of colectomy History of colostomy History of colostomy reversal Social History Current Living Situation: Other Current Living Situation Comment: with son at home Other Information That Helps Us Care for You: No Feels Safe at Home: Yes Safety Concerns: Feels Safe At This Time Smoking Status: Former smoker Smoking End Date: 1998 Hx Alcohol Use: Yes Alcohol type: hard liquor Alcohol Intake Frequency: holidays/special occasions only Hx Substance Use: No Beliefs That Will Affect Care: None Preferred Language: [place] [employer] Drill Operator Required: No Review of Systems A total of 10 systems reviewed and were otherwise negative Physical Exam Vital Signs Vital Signs - 24 hr 04/13/18 01:51 04/13/18 03:42 04/13/18 03:43 Temperature 36.7 C Temperature Source Oral Sepsis Recent Fever Within 48 Hours No Sepsis New/Unexplained Change in Mental Status No Sepsis Action Taken by Nursing No Action Required Pulse Rate 110 H Pulse Rate [Apical] 92 H Pulse Rate [Left Finger] Respiratory Rate 18 16 Respiratory Effort / Characteristics Non-Labored Spontaneous Respiratory Depth Normal Blood Pressure 180/93 H Blood Pressure [Left Arm] 174/89 H Blood Pressure Mean 122 Blood Pressure Mean [Left Arm] 117 Blood Pressure Position [Left Arm] Pulse Oximetry 97 95 86 L Oxygen Delivery Method Room Air Room Air Oxygen Flow Rate 2 04/13/18 05:50 04/13/18 06:29 04/13/18 07:07 Temperature 36.7 C 36.5 C Temperature Source Oral Oral Sepsis Recent Fever Within 48 Hours Sepsis New/Unexplained Change in Mental Status Sepsis Action Taken by Nursing Pulse Rate Pulse Rate [Apical] 91 H Pulse Rate [Left Finger] 86 82 Respiratory Rate 20 20 16 Respiratory Effort / Characteristics Non-Labored Spontaneous Non-Labored Respiratory Depth Normal Normal Normal Blood Pressure Blood Pressure [Left Arm] 153/95 H 175/93 H 147/84 H Blood Pressure Mean Blood Pressure Mean [Left Arm] 114 120 105 Blood Pressure Position [Left Arm] Lying Pulse Oximetry 91 95 97 Oxygen Delivery Method Room Air Nasal Cannula Oxygen Flow Rate 2 2 GENERAL: Patient is a healthy-appearing well-nourished HEAD: Normocephalic atraumatic EYES: Ocular movements intact pupils equal and react to light OROPHARYNX mucous membranes are moist no exudates present no erythema or edema present NECK: Supple no nuchal rigidity CHEST: Good equal expansion LUNGS: Clear and equal to auscultation CARDIAC: Normal S1 and S2 ABDOMEN: Soft mild tenderness throughout no guarding BACK: No CVA tenderness EXTREMITIES: No pain upon palpation normal muscle strength in all groups no clubbing cyanosis or edema NEURO: Patient is following commands is answering questions appropriately. Alert and oriented x3 Cranial Nerves 2-12 grossly intact Course Administered Medications Discontinued Medications Sodium Chloride (Nss 1000ml) 1,000 mls @ 999 mls/hr IV .Q1H1M ONE Stop: 04/13/18 04:00 Last Infusion: 04/13/18 04:35 Dose: 0 mls/hr Admin: 04/13/18 03:17 Dose: 999 mls/hr Ioversol (Optiray 320 100ml) 94 ml IV ONCE PRN PRN Reason: Interaction Checking Stop: 04/17/18 04:02 Last Admin: 04/13/18 04:03 Dose: 94 ml Metoclopramide HCl (Reglan) 10 mg IV NOW STA Stop: 04/13/18 03:01 Last Admin: 04/13/18 03:17 Dose: 10 mg Morphine Sulfate (Morphine Sulfate) 10 mg IM NOW STA Stop: 04/13/18 03:01 Last Admin: 04/13/18 03:18 Dose: Not Given Morphine Sulfate (Morphine Sulfate) 10 mg IV NOW STA Stop: 04/13/18 03:19 Last Admin: 04/13/18 03:19 Dose: 10 mg Ondansetron HCl (Zofran) 4 mg IV NOW STA Stop: 04/13/18 05:39 Last Admin: 04/13/18 05:49 Dose: 4 mg Medical Decision Making Medical Records Attestation: I reviewed the patient's medical records. Home Medications Current Medication List: was personally reviewed by me Laboratory Data Attestation: I reviewed the patient's lab results. Result diagrams: 04/13/18 02:30 04/13/18 02:30 Lab Results 04/13/18 04/13/18 04/13/18 Range/Units 02:30 02:30 03:35 WBC 9.88 (4.8-10.8) K/uL RBC 4.76 (4.2-5.4) M/uL Hgb 14.5 (12.0-16.0) g/dL POC Hgb 13.9 (12.0-16.0) g/dl Hct 41.9 (37-47) % POC Hct 41 (37-47) % MCV 88.0 (80-100) fL MCH 30.5 (25-34) pg MCHC 34.6 (32-36) g/dL RDW Std Deviation 40.4 (36.4-46.3) fL RDW Coeff of Laxmi 12.6 (11.5-14.5) % Plt Count 238 (130-400) K/uL MPV 9.2 (7.4-10.4) fL Immature Gran % (Auto) 0.2 % Neut % (Auto) 72.8 % Lymph % (Auto) 21.5 % Pitt % (Auto) 4.1 % Eos % (Auto) 1.2 % Baso % (Auto) 0.2 % Immature Gran # (Auto) 0.02 (0.00-0.02) K/uL Neut # (Auto) 7.19 H (1.4-6.5) K/uL Lymph # (Auto) 2.12 (1.2-3.4) K/uL Pitt # (Auto) 0.41 (0.11-0.59) K/uL Eos # (Auto) 0.12 (0-0.5) K/uL Baso # (Auto) 0.02 (0-0.2) K/uL POC Sodium 139 (135-144) mEq/L Sodium 139 (136-145) mmol/L POC Potassium 5.7 H (3.3-5.0) mEq/L Potassium 3.9 (3.5-5.1) mmol/L POC Chloride 104 (101-112) mEq/L Chloride 106 (98-107) mmol/L Carbon Dioxide 28 (21-32) mmol/L POC Total CO2 27 (24-31) mEq/l Anion Gap 5.0 (3-11) POC Anion Gap 14.0 L (16-25) mmol/L POC BUN 17 (7-18) mg/dl BUN 13 (7-18) mg/dl Creatinine 0.93 (0.6-1.2) mg/dl POC Creatinine 0.7 (0.6-1.3) mg/dl Est Cr Clr Drug Dosing 68.2 ml/min Est GFR ( Amer) 78.0 Est GFR (Non-Af Amer) 67.3 BUN/Creatinine Ratio 14.5 (10-20) Glucose 159 H (70-99) mg/dl POC Glucose (other) 166 H (70-99) mg/dl Calcium 9.3 (8.5-10.1) mg/dl POC Ioniz Calcium Goran 1.12 (1.12-1.32) mmol/l Total Bilirubin 0.5 (0.2-1) mg/dl AST 17 (15-37) U/L ALT 30 (12-78) U/L Alkaline Phosphatase 82 (45-117) U/L Total Protein 7.8 (6.4-8.2) gm/dl Albumin 3.8 (3.4-5.0) gm/dl Globulin 4.0 (2.5-4.0) gm/dl Albumin/Globulin Ratio 1.0 (0.9-2) Lipase 138 (73-393) U/L Imaging Data Attestation: I personally reviewed and interpreted this imaging study as follows : Radiologist's Impression: CT abdomen and pelvis with contrast: Comparison: CT abdomen pelvis 05/12/2017. Postoperative changes of suspected total proctocolectomy with ileal pouch and anastomosis. Small bowel and a small cyst in the right lower quadrant which appears unremarkable. Multiple dilated and fluid-filled loops of small bowel consistent with small bowel obstruction. The transition point appears to be in the left mid abdomen is small bowel and anastomotic site, similar to prior exam. There is small bowel feces sign proximal to the anastomosis. There is mild interloop ascites without evidence of pneumatosis pneumoperitoneum or portal venous gas. Liver gallbladder spleen pancreas and adrenal glands are unremarkable. No hydronephrosis nonobstructing right kidney stone. Small left kidney cyst. Uterus and urinary bladder are unremarkable. No acute osseous findings. MDM Narrative This is a 57-year-old female who presents emergency department complaining of diffuse abdominal pain. She does not have an elevation in her white blood cell count however she was sent for a CAT scan of the abdomen pelvis. This was concerning for a small bowel obstruction. An NG tube was placed here in the emergency department. I did discuss the case with the hospitalist service who agreed to admit the patient. Patient was given Dilaudid as well as Reglan here in the emergency department. Repeat examination revealed improvement the patient's symptoms. Patient family were in agreement with the treatment plan. Impression & Plan Abdominal pain, SBO (small bowel obstruction) Discharge Plan Visit Data *Final* Discharge Date/Time: 04/13/18 06:03 Chief Complaint: Abdominal Pain Stated Complaint: ABD PAIN,NAUSEA,POSSIBLE SBO ED Provider: Shilo Carroll Discharge Problem: Abdominal pain, SBO (small bowel obstruction) Patient Disposition: Admitted As Inpatient Discharge Instructions Interventions: ED Discharge Assessment Last Done: 04/13/18 06:03
[2018-04-13] MEDS ORDERED: ONDANSETRON INJ 2 MG/ML 2 ML VIAL IV STA (05:38)
[2018-04-13] MEDS ORDERED: ALBUTEROL HFA 8 GM INHALER INH PRN (06:27)
[2018-04-13] MEDS ORDERED: MoRPHine SULFATE 4 MG/ML 1 ML CARP\\VIAL IV PRN (06:27)
[2018-04-13] MEDS ORDERED: ONDANSETRON INJ 2 MG/ML 2 ML VIAL IV PRN (06:27)
[2018-04-13] MEDS ORDERED: ACETAMINOPHEN 325 MG TAB PO PRN (06:27)
--- NOTE | 2018-04-13 06:34 | History and Physical Report ---
DATE OF ADMISSION: 04/13/2018 CHIEF COMPLAINT: Abdominal pain. HISTORY OF PRESENT ILLNESS: This is a 57-year-old female with past medical history significant for ulcerative colitis status post colectomy, [facility], history of anxiety, obesity, history of bowel obstructions, who comes with severe abdominal pain since yesterday evening. Abdominal pain, severe in nature, comes in spasms associated with nausea. She had a bowel movement last at 9 p.m., it was normal. No blood in the stools or black stools. Normal bowel and bladder movements. No burning micturition. Received pain medication . Currently, resting comfortably, hemodynamically stable. Currently, denies any abdominal pain. Still has some nausea. No headaches, no blurred vision, no earache, no runny nose, no sore throat, no cough, no difficulty swallowing. No recent weight gain or weight loss. No chest pain, no shortness of breath, no fevers. ALLERGIES: ADHESIVE TAPE AND MORPHINE. PAST MEDICAL HISTORY: As mentioned above. PAST SURGICAL HISTORY: , uterine fibroid excision, colectomy. FAMILY HISTORY: Significant for COPD in father, history of carcinoma. SOCIAL HISTORY: Nonsmoker, no alcohol. CURRENT MEDICATIONS: The patient is on albuterol 2 puffs every 4 hours p.r.n., bupropion 200 mg p.o. b.i.d., calcium carbonate 1 tablet b.i.d., vitamin D 1000 units p.o. daily, citalopram 20 mg p.o. daily, folic acid 1 mg p.o. daily, lisinopril 10 mg p.o. daily, loperamide 2 mg p.o. t.i.d. p.r.n., multivitamin 1 tablet p.o. daily. REVIEW OF SYMPTOMS: As per HPI. Rest of review of symptoms is negative. PHYSICAL EXAMINATION: GENERAL: The patient is of moderate build, not in acute distress. VITAL SIGNS: Temperature 36.7, pulse 92, respiratory rate 16, blood pressure 174/89, oxygen 95% on 2 liters. HEENT: No pallor, no icterus. Pupils equal, round and reactive to light. NECK: No JVD, no neck masses, no carotid bruits. CARDIOVASCULAR: S1, S2 heard, regular rate and rhythm, no murmur, no gallop. RESPIRATORY SYSTEM: Normal AP diameter. No accessory muscle use. No wheezing, no crackles. ABDOMEN: Soft, bowel sounds present. Currently, mild discomfort. No distention. CENTRAL NERVOUS SYSTEM: Cranial nerves II-XII grossly intact. Nonfocal. EXTREMITIES: Mild pedal edema, no erythema seen. LABORATORIES: WBC 9.8, hemoglobin 14.5, hematocrit 41.9, platelets 238. Sodium 139, potassium 3.9, chloride 106, bicarbonate 28, BUN 13, creatinine 0.9, serum glucose 159, calcium 9.3, total bilirubin 0.5, AST 75, ALT 30, alkaline phosphatase 82. Lipase 138. CT abdomen and pelvis, unofficial report, small-bowel obstruction. ASSESSMENT AND PLAN: A 57-year-old female with history of ulcerative colitis status post colectomy, history of bowel obstructions in the past, comes with abdominal pain and Ct scan shows small bowel obstruction. 1. Small-bowel obstruction. History of small-bowel obstruction in the past. We will keep her n.p.o., IV fluids, IV antiemetics. Currently,pain improved. NG tube if worsens. On exam, she has bowel sounds. Closely monitor. Consult surgery for further recommendations. 2. History of ulcerative colitis status post colectomy. [facility], [facility]. 3. History of anxiety. Continue citalopram and bupropion. 4. High blood pressure. Continue on lisinopril. 5. Questionable diabetes. We will follow HbA1c. 6. Deep venous thrombosis prophylaxis, SCDs for now. 7. Disposition: Close monitoring in the medical floor. Level 1 full code. MTDD
[2018-04-13 06:56] LABS: iSTAT Hemoglobin 13.9 g/dl (12.0-16.0); iSTAT Ionized Calcium 1.12 mmol/l (1.12-1.32)
[2018-04-13] MEDS: SODIUM CHLORIDE 0.9% 1000ML 1,000 ML IV SCH ×3 (08:09→23:21)
--- NOTE | 2018-04-13 10:18 | CT Scan Report ---
CT abd pelvis IV con only CLINICAL HISTORY: 57 years-old Female presenting with Pt c/o abd pain, history of small bowel obstruc tion. TECHNIQUE: Multidetector CT of the abdomen and pelvis was performed after the administration of intra venous contrast. IV contrast: 94 mL of Optiray 320. One or more dose lowering techniques were used co nsistent with the principles of ALARA (as low as reasonably achievable), including automatic exposure control, mA or kV adjustment to individual patient size, and/or use of iterative reconstruction. COMPARISON: 05/12/2017. CT DOSE (mGy.cm): The estimated cumulative dose is 786.87 mGy.cm. 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 Lung bases: Normal heart size. No pericardial or pleural effusion. Minimal dependent changes likely a telectasis. Liver: Normal morphology. Density suggestive of hepatic steatosis. No focal lesion. Patent hepatic va sculature. Biliary: No intrahepatic or extrahepatic biliary ductal dilatation. Normal gallbladder. Pancreas: Normal. Spleen: Normal. Adrenal glands: Normal. Kidneys and ureters: Well-defined hypodensity in the left kidney likely simple cyst. Otherwise normal renal parenchyma. No hydronephrosis. Nonobstructing 4 mm calculus at the lower pole of the right kid kinjal. Ureters nondistended. Bladder: The configuration of the bladder suggests pelvic ligamentous laxity. Bladder otherwise elva l. Pelvic organs: Fallopian tube occlusion clips in place. Normal uterus. Ovaries not visualized. Bowel: Postsurgical changes of colectomy with a enterocolonic anastomosis in the rectum, possibly ile oanal pouch creation. This is immediately adjacent to a crescentic fluid collection along the left pe lvic sidewall (series 3 image 301). This is unchanged from prior. Significant small bowel distention. Many loops of small bowel measure over 3 cm in diameter. There is surrounding perienteric fluid and inflammation. Small bowel is dilated to the level of a stool ball in the left mid abdomen, which was present on the prior exam. This segment of small bowel now measures 4 cm in diameter, unchanged prior . There is downstream decompressed small bowel at this site as on prior exam. This is at a site of an enteroenteric anastomosis. A second enteroenteric anastomosis is noted in the right lower quadrant, which is patent. Peritoneal cavity: Trace free fluid in the abdomen primarily on the left associated with dilated loop s of small bowel. This is similar in appearance to prior exam. No free intraperitoneal gas or pneumat osis. Lymph nodes: No enlarged lymph nodes in the abdomen or pelvis. The fluid collection along the left pe lvic sidewall is unchanged from prior and most reflective of a lymphocele. Vasculature: Atherosclerosis of the normal caliber abdominal aorta. IVC patent. Abdominal wall: Diastasis of the rectus abdominis. No associated fluid with the midline surgical inci cristal site or right lower quadrant site. Musculoskeletal: Normal. IMPRESSION: 1. Similar appearance of dilated proximal small bowel with a high-grade partial or complete bowel ob struction in the left mid abdomen, where there is a stool ball and downstream transition point. This may be due to adhesions or stenosis of the enteroenteric anastomosis. Fluid and inflammatory change s urrounding the dilated small bowel in the left mid abdomen raises concern for ischemia though no pneu matosis is evident. These findings are very similar to the prior exam. 2. Postsurgical changes of total colectomy and 2 enteroenteric anastomoses, including the one in the right abdomen which is patent. 3. Nonobstructing right renal calculus. 4. Hepatic steatosis. Electronically signed by: Ahmet Mac M.D. 04/13/2018 10:16 AM
--- NOTE | 2018-04-13 11:37 | Surgery Consultation ---
Date of Consultation April 13, 2018 Assessment & Plan (1) SBO (small bowel obstruction): pt is a 57 year old femlae who was admitted to hospital for acute abdominal pain, now pt passed gas and BM, no abdominal pain, IMP: resolved SBO, agree with conservative treatment, clear diet tomorrow, will F/U, pt agrees with the plan, I answered all questions, History of Present Illness Attending Physician: Ifeanyi Crabtree MD This is a 57-year-old female with past medical history significant for ulcerative colitis status post colectomy, [facility], history of anxiety, obesity, history of bowel obstructions, who comes with severe abdominal pain since yesterday evening. Abdominal pain, severe in nature, comes in spasms associated with nausea. She had a bowel movement last at 9 p.m., it was normal. No blood in the stools or black stools. Normal bowel and bladder movements. No burning micturition. Received pain medication . Currently, resting comfortably, hemodynamically stable. Currently, denies any abdominal pain. Still has some nausea. No headaches, no blurred vision, no earache, no runny nose, no sore throat, no cough, no difficulty swallowing. No recent weight gain or weight loss. No chest pain, no shortness of breath, no fevers. I got a call fotr consult SBO, I reviewed pt's H/P with pt, pt just passed BM one time, pt denies abdominal pain, no nausea, no vomiting, Allergies Allergy/AdvReac Type Severity Reaction Status Date / Time adhesive Allergy Mild Rash Verified 04/13/18 05:09 hydromorphone Allergy Mild ITCHINESS Verified 04/13/18 05:09 Home Medications Home Medications Medication Instructions Recorded Confirmed Type albuterol sulfate 2 puff INHALATION Q4 PRN 04/13/18 04/13/18 History bupropion HCl 200 mg PO BID 04/13/18 04/13/18 History calcium carbonate-vitamin D3 1 tab PO BID 04/13/18 04/13/18 History cholecalciferol (vitamin D3) 1,000 unit PO DAILY 04/13/18 04/13/18 History [Vitamin D3] citalopram 20 mg PO DAILY 04/13/18 04/13/18 History folic acid 1 mg PO DAILY 04/13/18 04/13/18 History lisinopril 10 mg PO DAILY 04/13/18 04/13/18 History loperamide 2 mg PO TID PRN 04/13/18 04/13/18 History multivitamin 1 tab PO DAILY 04/13/18 04/13/18 History Patient History Medical History SBO (small bowel obstruction) (Acute) Anxiety Asthma Degenerative disc disease Fusion of spine Hypertension Osteoarthritis Surgical History History of bilateral tubal ligation History of colectomy History of colostomy History of colostomy reversal Social History Current Living Situation: Other Current Living Situation Comment: with son at home Other Information That Helps Us Care for You: No Feels Safe at Home: Yes Safety Concerns: Feels Safe At This Time Smoking Status: Former smoker Smoking End Date: 1998 Hx Alcohol Use: Yes Alcohol type: hard liquor Alcohol Intake Frequency: holidays/special occasions only Hx Substance Use: No Beliefs That Will Affect Care: None Preferred Language: [place] Seo Executive Required: No Review of Systems Constitutional: as per Subjective / HPI Ear, Nose, Mouth, Throat: as per Subjective / HPI Respiratory: as per Subjective / HPI Cardiovascular: as per Subjective / HPI Gastrointestinal: as per Subjective / HPI colectomy in 2011 Genitourinary (Female): as per Subjective / HPI Neurologic: as per Subjective / HPI Psychiatric: as per Subjective / HPI Endocrine: as per Subjective / HPI Hematologic / Lymphatic: as per Subjective / HPI Physical Exam 2 Vital Signs (Past 24 Hours): Last Vital Signs Temp 36.5 C 04/13/18 07:07 Pulse 82 04/13/18 07:07 Resp 16 04/13/18 07:07 BP 147/84 H 04/13/18 07:07 Pulse Ox 97 04/13/18 07:07 Constitutional: WD/WN, vitals as above well developed and well nourished Neck: trachea midline, no thyromegaly Respiratory: normal respiratory effort, lungs clear to auscultation Cardiovascular: RRR, no murmur, no edema Rate/Rhythm: regular rate and regular rhythm Gastrointestinal (Abdomen): Percussion/Palpation: abdomen soft NT, ND, BS + , middle line scar, Neurologic: awake Psychiatric: Orientation: alert and oriented x 3 Results & Data Laboratory Results Abnormal lab results 04/13/18 04/13/18 04/13/18 Range/Units 02:30 02:30 03:35 Neut # (Auto) 7.19 H (1.4-6.5) K/uL POC Potassium 5.7 H (3.3-5.0) mEq/L POC Anion Gap 14.0 L (16-25) mmol/L Glucose 159 H (70-99) mg/dl POC Glucose (other) 166 H (70-99) mg/dl Diagnostic Findings CT abd pelvis IV con only CLINICAL HISTORY: 57 years-old Female presenting with Pt c/o abd pain, history of small bowel obstruction. TECHNIQUE: Multidetector CT of the abdomen and pelvis was performed after the administration of intravenous contrast. IV contrast: 94 mL of Optiray 320. One or more dose lowering techniques were used consistent with the principles of ALARA (as low as reasonably achievable), including automatic exposure control, mA or kV adjustment to individual patient size, and/or use of iterative reconstruction. COMPARISON: 05/12/2017. CT DOSE (mGy.cm): The estimated cumulative dose is 786.87 mGy.cm. FINDINGS: Rotary Soil Stabilizer topogram: Pelvic surgical clips. Lung bases: Normal heart size. No pericardial or pleural effusion. Minimal dependent changes likely atelectasis. Liver: Normal morphology. Density suggestive of hepatic steatosis. No focal lesion. Patent hepatic vasculature. Biliary: No intrahepatic or extrahepatic biliary ductal dilatation. Normal gallbladder. Pancreas: Normal. Spleen: Normal. Adrenal glands: Normal. Kidneys and ureters: Well-defined hypodensity in the left kidney likely simple cyst. Otherwise normal renal parenchyma. No hydronephrosis. Nonobstructing 4 mm calculus at the lower pole of the right kidney. Ureters nondistended. Bladder: The configuration of the bladder suggests pelvic ligamentous laxity. Bladder otherwise normal. Pelvic organs: Fallopian tube occlusion clips in place. Normal uterus. Ovaries not visualized. Bowel: Postsurgical changes of colectomy with a enterocolonic anastomosis in the rectum, possibly ileoanal pouch creation. This is immediately adjacent to a crescentic fluid collection along the left pelvic sidewall (series 3 image 301) . This is unchanged from prior. Significant small bowel distention. Many loops of small bowel measure over 3 cm in diameter. There is surrounding perienteric fluid and inflammation. Small bowel is dilated to the level of a stool ball in the left mid abdomen, which was present on the prior exam. This segment of small bowel now measures 4 cm in diameter, unchanged prior. There is downstream decompressed small bowel at this site as on prior exam. This is at a site of an enteroenteric anastomosis. A second enteroenteric anastomosis is noted in the right lower quadrant, which is patent. Peritoneal cavity: Trace free fluid in the abdomen primarily on the left associated with dilated loops of small bowel. This is similar in appearance to prior exam. No free intraperitoneal gas or pneumatosis. Lymph nodes: No enlarged lymph nodes in the abdomen or pelvis. The fluid collection along the left pelvic sidewall is unchanged from prior and most reflective of a lymphocele. Vasculature: Atherosclerosis of the normal caliber abdominal aorta. IVC patent. Abdominal wall: Diastasis of the rectus abdominis. No associated fluid with the midline surgical incision site or right lower quadrant site. Musculoskeletal: Normal. IMPRESSION: 1. Similar appearance of dilated proximal small bowel with a high-grade partial or complete bowel obstruction in the left mid abdomen, where there is a stool ball and downstream transition point. This may be due to adhesions or stenosis of the enteroenteric anastomosis. Fluid and inflammatory change surrounding the dilated small bowel in the left mid abdomen raises concern for ischemia though no pneumatosis is evident. These findings are very similar to the prior exam. 2. Postsurgical changes of total colectomy and 2 enteroenteric anastomoses, including the one in the right abdomen which is patent. 3. Nonobstructing right renal calculus. 4. Hepatic steatosis.
[2018-04-13] MEDS: CITALOPRAM 40 MG TAB PO SCH (11:58)
[2018-04-13] MEDS: FOLIC ACID 1 MG TAB PO SCH (11:58)
[2018-04-13] MEDS: MULTIVITAMIN TAB PO SCH (11:58)
[2018-04-13] MEDS: BuPROPion SR 100 MG TABCR PO SCH ×2 (11:59→21:19)
[2018-04-13] MEDS: LISINOPRIL 10 MG TAB PO SCH (11:59)
[2018-04-13 12:16] LABS: Appearance Urine Clear (Clear); Bilirubin Urine Negative (Negative); Color Urine Yellow; Glucose Urine UA Negative (Negative); Ketones Urine Negative (Negative); Leukocyte Esterase Urine Negative (Negative); Nitrite Urine Negative (Negative); Protein Urine Negative (Negative); Specific Gravity Urine > 1.045 (1.000-1.030); Urobilinogen Urine Negative (Negative)
--- NOTE | 2018-04-13 15:36 | Hospitalist Progress Note ---
Date of Service April 13, 2018 Assessment & Plan (1) SBO (small bowel obstruction): Presented with abdominal pain and distention Noted to have a small bowel obstruction on imaging studies Has been kept n.p.o., IV fluid and pain medications Clinically better this morning Appreciate surgical input and recommendation Likely to start clears tomorrow and advance as tolerated (2) Abdominal pain: (3) Ulcerative colitis: As above history of ulcerative colitis and status post total colectomy HPI secondary to adhesions Other medical condition remains stable (4) History of total colectomy: Secondary to ulcerative colitis Subjective This is a 57-year-old female with past medical history significant for ulcerative colitis status post colectomy, [facility], history of anxiety, obesity, history of bowel obstructions, who comes with severe abdominal pain since yesterday evening, noted to have SBO on imaging studies 04/13 Has been feeling little better since admission Denies any abdominal distention and the pain No nausea and/or vomiting Bowel is not moved yet Physical Exam 2 Vital Signs (Past 24 Hours): Last Vital Signs Temp 36.7 C 04/13/18 15:13 Pulse 86 04/13/18 15:13 Resp 18 04/13/18 15:13 BP 121/83 04/13/18 15:13 Pulse Ox 96 04/13/18 15:13 Constitutional: WD/WN, vitals as above Eyes: PERRL, conjunctivae normal, anicteric sclerae ENMT: external ear and nose normal, oropharynx normal Respiratory: normal respiratory effort, lungs clear to auscultation Cardiovascular: Rate/Rhythm: regular rate and regular rhythm Heart Sounds: normal S1 and normal S2 Gastrointestinal (Abdomen): Inspection/Auscultation: abdomen normal to inspection and normal bowel sounds (Sluggish bowel sounds); abdomen not distended Percussion/Palpation: + abdomen tender (Mildly tender right lower quadrant) and abdomen soft Neurologic: Alert, awake and oriented x3 Results & Data Laboratory Results Short CBC 04/13/18 Range/Units 02:30 WBC 9.88 (4.8-10.8) K/uL Hgb 14.5 (12.0-16.0) g/dL Hct 41.9 (37-47) % Plt Count 238 (130-400) K/uL BMP 04/13/18 02:30 Sodium 139 Potassium 3.9 Chloride 106 Carbon Dioxide 28 BUN 13 Creatinine 0.93 Glucose 159 H Calcium 9.3 Liver Function 04/13/18 Range/Units 02:30 Total Bilirubin 0.5 (0.2-1) mg/dl AST 17 (15-37) U/L ALT 30 (12-78) U/L Alkaline Phosphatase 82 (45-117) U/L Albumin 3.8 (3.4-5.0) gm/dl Urine 04/13/18 Range/Units 12:00 Urine Color Yellow Urine Appearance Clear (Clear) Urine pH 5.0 (4.5-7.5) Ur Specific [place] > 1.045 H (1.000-1.030) Urine Protein Negative (Negative) Urine Glucose (UA) Negative (Negative) Short CBC 04/13/18 Range/Units 02:30 WBC 9.88 (4.8-10.8) K/uL Hgb 14.5 (12.0-16.0) g/dL Hct 41.9 (37-47) % Plt Count 238 (130-400) K/uL BMP 04/13/18 02:30 Sodium 139 Potassium 3.9 Chloride 106 Carbon Dioxide 28 BUN 13 Creatinine 0.93 Glucose 159 H Calcium 9.3 Liver Function 04/13/18 Range/Units 02:30 Total Bilirubin 0.5 (0.2-1) mg/dl AST 17 (15-37) U/L ALT 30 (12-78) U/L Alkaline Phosphatase 82 (45-117) U/L Albumin 3.8 (3.4-5.0) gm/dl Urine 04/13/18 Range/Units 12:00 Urine Color Yellow Urine Appearance Clear (Clear) Urine pH 5.0 (4.5-7.5) Ur Specific [place] > 1.045 H (1.000-1.030) Urine Protein Negative (Negative) Urine Glucose (UA) Negative (Negative) Medications Administered Current Inpatient Medications Acetaminophen (Tylenol) 650 mg PO Q4H PRN PRN Reason: pain/fever Stop: 05/13/18 06:26 Albuterol (Ventolin Hfa) 2 puffs INH Q4 PRN PRN Reason: Shortness Of Breath Or Wheezing Stop: 05/13/18 06:26 Bupropion HCl (Wellbutrin-Sr) 200 mg PO BID [facility] Stop: 05/13/18 08:59 Last Admin: 04/13/18 11:59 Dose: 200 mg Citalopram Hydrobromide (Celexa) 20 mg PO DAILY [facility] Stop: 05/13/18 08:59 Last Admin: 04/13/18 11:58 Dose: 20 mg Folic Acid (Folvite) 1 mg PO DAILY [facility] Stop: 05/13/18 08:59 Last Admin: 04/13/18 11:58 Dose: Not Given Sodium Chloride (Nss 1000ml) 1,000 mls @ 125 mls/hr IV .Q8H [facility] Stop: 05/13/18 06:26 Last Admin: 04/13/18 15:28 Dose: 125 mls/hr Lisinopril (Zestril) 10 mg PO DAILY [facility] Stop: 05/13/18 08:59 Last Admin: 04/13/18 11:59 Dose: 10 mg Morphine Sulfate (Morphine Sulfate) 3 mg IV Q3H PRN PRN Reason: Pain Stop: 04/27/18 06:26 Multivitamins (Multivitamin Tab) 1 tab PO DAILY [facility] Stop: 05/13/18 08:59 Last Admin: 04/13/18 11:58 Dose: Not Given Ondansetron HCl (Zofran) 4 mg IV Q6H PRN PRN Reason: Nausea Stop: 05/13/18 06:26 _ (1) Abdominal pain Abdominal location: generalized Qualified Code(s): R10.84 - Generalized abdominal pain
[2018-04-14 05:52] LABS: Eosinophils % (auto) 2.9 %; Hematocrit (blood only) 40.5 % (37-47); Hemoglobin 13.5 g/dL (12.0-16.0); Immature Granulocytes # (auto) 0.01 K/uL (0.00-0.02); Immature Granulocytes % (auto) 0.1 %; Lymphocytes # (auto) 3.13 K/uL (1.2-3.4); Lymphocytes % (auto) 44.8 %; Mean Corpuscular Hgb Conc 33.3 g/dL (32-36); Mean Corpuscular Volume 89.8 fL (80-100); Monocytes # (auto) 0.73 K/uL (0.11-0.59); Monocytes % (auto) 10.5 %; Neutrophils # (auto) 2.91 K/uL (1.4-6.5); Neutrophils % (auto) 41.7 %; Platelet Count 226 K/uL (130-400); RDW Standard Deviation 42.6 fL (36.4-46.3); Red Blood Count 4.51 M/uL (4.2-5.4); White Blood Count 6.98 K/uL (4.8-10.8)
[2018-04-14] MEDS: SODIUM CHLORIDE 0.9% 1000ML 1,000 ML IV SCH ×3 (06:03→21:02)
[2018-04-14 06:22] LABS: BUN Creatinine Ratio 16.1 (10-20); Calcium 7.8 mg/dl (8.5-10.1); Creatinine Clr Calc Pharmacy 68.9 ml/min; Est GFR (Non-African American) 68.2; Magnesium 1.8 mg/dl (1.8-2.4); Phosphorus 2.6 mg/dl (2.5-4.9); Potassium 3.8 mmol/L (3.5-5.1)
[2018-04-14 06:40] LABS: Estimated Average Glucose 140 mg/dl
[2018-04-14] MEDS: MULTIVITAMIN TAB PO SCH (08:52)
[2018-04-14] MEDS: CITALOPRAM 40 MG TAB PO SCH (08:52)
[2018-04-14] MEDS: BuPROPion SR 100 MG TABCR PO SCH ×2 (08:52→21:00)
[2018-04-14] MEDS: FOLIC ACID 1 MG TAB PO SCH (08:52)
[2018-04-14] MEDS: LISINOPRIL 10 MG TAB PO SCH (08:53)
--- NOTE | 2018-04-14 11:40 | Surgery Progress Note ---
Date of Service April 14, 2018 pt is doing better, passed BM, no abdominal pain, no nausea, no vomiting, Assessment & Plan (1) SBO (small bowel obstruction): doing better, passed BM, resolved SBO, clear diet will F/U Subjective Constitutional: as per Subjective / HPI Ear, Nose, Mouth, Throat: as per Subjective / HPI Respiratory: as per Subjective / HPI Cardiovascular: as per Subjective / HPI Gastrointestinal: as per Subjective / HPI Genitourinary (Female): + as per Subjective / HPI Neurologic: as per Subjective / HPI Psychiatric: as per Subjective / HPI Endocrine: as per Subjective / HPI Hematologic / Lymphatic: as per Subjective / HPI Physical Exam 2 Vital Signs (Past 24 Hours): Last Vital Signs Temp 36.8 C 04/14/18 07:04 Pulse 86 04/14/18 07:04 Resp 16 04/14/18 07:04 BP 108/62 04/14/18 07:04 Pulse Ox 94 04/14/18 07:04 Constitutional: WD/WN, vitals as above well developed and well nourished Neck: trachea midline, no thyromegaly Respiratory: normal respiratory effort, lungs clear to auscultation Cardiovascular: RRR, no murmur, no edema Gastrointestinal (Abdomen): Percussion/Palpation: abdomen soft NT, ND BS + Neurologic: awake Psychiatric: Orientation: alert and oriented x 3 Results & Data Laboratory Results Abnormal lab results 04/13/18 04/14/18 04/14/18 Range/Units 12:00 05:31 05:31 [place] # (Auto) 0.73 H (0.11-0.59) K/uL Chloride 108 H (98-107) mmol/L Glucose 102 H (70-99) mg/dl Hemoglobin A1c (4.5-5.6) % Calcium 7.8 L D (8.5-10.1) mg/dl Ur Specific [place] > 1.045 H (1.000-1.030) 04/14/18 Range/Units 05:31 [place] # (Auto) (0.11-0.59) K/uL Chloride (98-107) mmol/L Glucose (70-99) mg/dl Hemoglobin A1c 6.5 H (4.5-5.6) % Calcium (8.5-10.1) mg/dl Ur Specific [place] (1.000-1.030)
--- NOTE | 2018-04-14 15:43 | Hospitalist Progress Note ---
Date of Service April 14, 2018 Assessment & Plan (1) SBO (small bowel obstruction): Presented with abdominal pain and distention Noted to have a small bowel obstruction on imaging studies Has been kept n.p.o., IV fluid and pain medications Clinically better this morning Appreciate surgical input and recommendation Likely to start clears tomorrow and advance as tolerated Denies any symptoms today Clears started and will be advanced as tolerated Likely to go home this afternoon (2) Abdominal pain: (3) Ulcerative colitis: As above history of ulcerative colitis and status post total colectomy HPI secondary to adhesions Positive colitis seems to be stable Other medical condition remains stable (4) History of total colectomy: Secondary to ulcerative colitis Will be discharged this afternoon Subjective This is a 57-year-old female with past medical history significant for ulcerative colitis status post colectomy, [facility], history of anxiety, obesity, history of bowel obstructions, who comes with severe abdominal pain since yesterday evening, noted to have SBO on imaging studies 04/13 Has been feeling little better since admission Denies any abdominal distention and the pain No nausea and/or vomiting Bowel is not moved yet 04/14 Patient was seen and examined in medical floor She denies any symptoms whatsoever She has been moving bowel and tolerating advanced diet Physical Exam 2 Vital Signs (Past 24 Hours): Last Vital Signs Temp 36.9 C 04/14/18 15:14 Pulse 85 04/14/18 15:14 Resp 16 04/14/18 15:14 BP 127/79 04/14/18 15:14 Pulse Ox 95 04/14/18 15:14 Constitutional: WD/WN, vitals as above Eyes: PERRL, conjunctivae normal, anicteric sclerae ENMT: external ear and nose normal, oropharynx normal Respiratory: normal respiratory effort, lungs clear to auscultation Cardiovascular: Rate/Rhythm: regular rate and regular rhythm Heart Sounds: normal S1 and normal S2 Gastrointestinal (Abdomen): Inspection/Auscultation: abdomen normal to inspection and normal bowel sounds (Sluggish bowel sounds); abdomen not distended Percussion/Palpation: abdomen soft Neurologic: Alert awake and oriented x3,no focal sensory and motor deficit appreciated Results & Data Laboratory Results Short CBC 04/14/18 Range/Units 05:31 WBC 6.98 (4.8-10.8) K/uL Hgb 13.5 (12.0-16.0) g/dL Hct 40.5 (37-47) % Plt Count 226 (130-400) K/uL BMP 04/13/18 04/14/18 15:37 05:31 Sodium 142 Potassium 4.2 3.8 Chloride 108 H Carbon Dioxide 27 BUN 15 Creatinine 0.92 Glucose 102 H Calcium 7.8 L D Medications Administered Current Inpatient Medications Acetaminophen (Tylenol) 650 mg PO Q4H PRN PRN Reason: pain/fever Stop: 05/13/18 06:26 Albuterol (Ventolin Hfa) 2 puffs INH Q4 PRN PRN Reason: Shortness Of Breath Or Wheezing Stop: 05/13/18 06:26 Bupropion HCl (Wellbutrin-Sr) 200 mg PO BID [facility] Stop: 05/13/18 08:59 Last Admin: 04/14/18 08:52 Dose: 200 mg Citalopram Hydrobromide (Celexa) 20 mg PO DAILY [facility] Stop: 05/13/18 08:59 Last Admin: 04/14/18 08:52 Dose: 20 mg Folic Acid (Folvite) 1 mg PO DAILY [facility] Stop: 05/13/18 08:59 Last Admin: 04/14/18 08:52 Dose: 1 mg Sodium Chloride (Nss 1000ml) 1,000 mls @ 125 mls/hr IV .Q8H [facility] Stop: 05/13/18 06:26 Last Infusion: 04/14/18 14:32 Dose: 125 mls/hr Lisinopril (Zestril) 10 mg PO DAILY [facility] Stop: 05/13/18 08:59 Last Admin: 04/14/18 08:53 Dose: 10 mg Morphine Sulfate (Morphine Sulfate) 3 mg IV Q3H PRN PRN Reason: Pain Stop: 04/27/18 06:26 Last Admin: 04/13/18 15:34 Dose: 3 mg Multivitamins (Multivitamin Tab) 1 tab PO DAILY [facility] Stop: 05/13/18 08:59 Last Admin: 04/14/18 08:52 Dose: 1 tab Ondansetron HCl (Zofran) 4 mg IV Q6H PRN PRN Reason: Nausea Stop: 05/13/18 06:26 _ (1) Abdominal pain Abdominal location: generalized Qualified Code(s): R10.84 - Generalized abdominal pain
[2018-04-15] MEDS: SODIUM CHLORIDE 0.9% 1000ML 1,000 ML IV SCH ×2 (04:53→12:47)
[2018-04-15] MEDS: BuPROPion SR 100 MG TABCR PO SCH (09:29)
[2018-04-15] MEDS: FOLIC ACID 1 MG TAB PO SCH (09:29)
[2018-04-15] MEDS: MULTIVITAMIN TAB PO SCH (09:30)
[2018-04-15] MEDS: LISINOPRIL 10 MG TAB PO SCH (09:30)
[2018-04-15] MEDS: CITALOPRAM 40 MG TAB PO SCH (09:30)
--- NOTE | 2018-04-15 09:59 | Surgery Progress Note ---
Date of Service April 15, 2018 Assessment & Plan (1) SBO (small bowel obstruction): Resolving vitals stable, afebrile loose liquid bowel movements no n/v Plan: Advance diet to low fiber diet Okay from surgical standpoint for discharge Continue medical management Dr. Cui has seen pt, agrees with above Subjective feeling good no abdominal pain no nausea or vomiting +liquid bowel movements, last this morning passing flatus tolerated clear liquids Physical Exam Vital Signs (Past 24 Hours): Last Vital Signs Temp 36.9 C 04/15/18 07:22 Pulse 81 04/15/18 07:22 Resp 16 04/15/18 07:22 BP 123/79 04/15/18 09:31 Pulse Ox 97 04/15/18 07:22 Constitutional: WD/WN, vitals as above no acute distress Respiratory: normal respiratory effort; no respiratory distress Gastrointestinal (Abdomen): Inspection/Auscultation: abdomen normal to inspection; abdomen not distended Percussion/Palpation: abdomen soft; abdomen nontender, no guarding and abdomen not rigid Skin: no rashes, warm and dry Psychiatric: A+Ox3, euthymic affect
--- NOTE | 2018-04-15 13:10 | Hospitalist Progress Note ---
Date of Service April 15, 2018 Assessment & Plan (1) SBO (small bowel obstruction): Presented with abdominal pain and distention Noted to have a small bowel obstruction on imaging studies Has been kept n.p.o., IV fluid and pain medications Clinically better this morning Appreciate surgical input and recommendation Likely to start clears tomorrow and advance as tolerated Denies any symptoms today Clears started and will be advanced as tolerated Tolerating liquid diet and advance as tolerated Less abdominal pain without any nausea and/or Bowel has been moving Likely discharge this afternoon (2) Abdominal pain: Much better and no obstructive symptoms (3) Ulcerative colitis: As above history of ulcerative colitis and status post total colectomy HPI secondary to adhesions Positive colitis seems to be stable Other medical condition remains stable (4) History of total colectomy: Secondary to ulcerative colitis Likely to be discharged this afternoon Subjective This is a 57-year-old female with past medical history significant for ulcerative colitis status post colectomy, [facility], history of anxiety, obesity, history of bowel obstructions, who comes with severe abdominal pain since yesterday evening, noted to have SBO on imaging studies 04/13 Has been feeling little better since admission Denies any abdominal distention and the pain No nausea and/or vomiting Bowel is not moved yet 04/14 Patient was seen and examined in medical floor She denies any symptoms whatsoever She has been moving bowel and tolerating advanced diet 04/15 The patient was seen and examined in medical floor She has been feeling a lot better Minimal pain in the abdomen following meals Has been taking regular diet yet Physical Exam 2 Vital Signs (Past 24 Hours): Last Vital Signs Temp 36.8 C 04/15/18 11:14 Pulse 86 04/15/18 11:14 Resp 18 04/15/18 11:14 BP 117/80 04/15/18 11:14 Pulse Ox 96 04/15/18 11:14 Physical Exam: No apparent distress at rest Constitutional: WD/WN, vitals as above Eyes: PERRL, conjunctivae normal, anicteric sclerae ENMT: external ear and nose normal, oropharynx normal Respiratory: normal respiratory effort, lungs clear to auscultation Cardiovascular: Rate/Rhythm: regular rate and regular rhythm Heart Sounds: normal S1 and normal S2 Gastrointestinal (Abdomen): Inspection/Auscultation: abdomen normal to inspection and normal bowel sounds (Sluggish bowel sounds); abdomen not distended Percussion/Palpation: + abdomen tender (Mildly tender right lower quadrant) and abdomen soft Neurologic: PERRL, EOMI, accommodation nl, no face palsy, no dysarthria _ (1) Abdominal pain Abdominal location: generalized Qualified Code(s): R10.84 - Generalized abdominal pain
--- NOTE | 2018-04-15 18:16 | Discharge Summary ---
Date of Service April 15, 2018 Admission HPI Per Admitting Provider DICTATED BY: Mikey Nguyen MD DATE OF ADMISSION: 04/13/2018 CHIEF COMPLAINT: Abdominal pain. HISTORY OF PRESENT ILLNESS: This is a 57-year-old female with past medical history significant for ulcerative colitis status post colectomy, follows [facility], history of anxiety, obesity, history of bowel obstructions, who comes with severe abdominal pain since yesterday evening. Abdominal pain, severe in nature, comes in spasms associated with nausea. She had a bowel movement last at 9 p.m., it was normal. No blood in the stools or black stools. Normal bowel and bladder movements. No burning micturition. Received pain medication . Currently, resting comfortably, hemodynamically stable. Currently, denies any abdominal pain. Still has some nausea. No headaches, no blurred vision, no earache, no runny nose, no sore throat, no cough, no difficulty swallowing. No recent weight gain or weight loss. No chest pain, no shortness of breath, no fevers. Admission Exam Per Admitting Provider GENERAL: The patient is of moderate build, not in acute distress. VITAL SIGNS: Temperature 36.7, pulse 92, respiratory rate 16, blood pressure 174/89, oxygen 95% on 2 liters. HEENT: No pallor, no icterus. Pupils equal, round and reactive to light. NECK: No JVD, no neck masses, no carotid bruits. CARDIOVASCULAR: S1, S2 heard, regular rate and rhythm, no murmur, no gallop. RESPIRATORY SYSTEM: Normal AP diameter. No accessory muscle use. No wheezing, no crackles. ABDOMEN: Soft, bowel sounds present. Currently, mild discomfort. No distention. CENTRAL NERVOUS SYSTEM: Cranial nerves II-XII grossly intact. Nonfocal. EXTREMITIES: Mild pedal edema, no erythema seen. Principal Diagnosis SBO likely secondary to adhesions-resolved Discharge Exam Constitutional WD/WN, vitals as above Eyes PERRL, conjunctivae normal, anicteric sclerae ENMT external ear and nose normal, oropharynx normal Respiratory normal respiratory effort, lungs clear to auscultation Cardiovascular Rate/Rhythm: regular rate and regular rhythm Heart Sounds: normal S1 and normal S2 Gastrointestinal (Abdomen) Inspection/Auscultation: abdomen normal to inspection and normal bowel sounds ( Sluggish bowel sounds); abdomen not distended Percussion/Palpation: + abdomen tender (Mildly tender right lower quadrant) and abdomen soft Neurologic PERRL, EOMI, accommodation nl, no face palsy, no dysarthria Discharge Data Allergies Allergy/AdvReac Type Severity Reaction Status Date / Time adhesive Allergy Mild Rash Verified 04/13/18 05:09 hydromorphone Allergy Mild ITCHINESS Verified 04/13/18 05:09 Consultations 04/13/18 04:30 ED Decision to Admit Stat 04/13/18 08:00 Consult General Surgery Routine Ordered Studies 04/13/18 02:58 CT abd pelvis IV con only Urgent Hospital Course (1) SBO (small bowel obstruction): Presented with abdominal pain and distention Noted to have a small bowel obstruction on imaging studies Has been kept n.p.o., IV fluid and pain medications Clinically better this morning Appreciate surgical input and recommendation Likely to start clears tomorrow and advance as tolerated Denies any symptoms today Clears started and will be advanced as tolerated Tolerating liquid diet and advance as tolerated Less abdominal pain without any nausea and/or Bowel has been moving Likely discharge this afternoon (2) Abdominal pain: Much better and no obstructive symptoms (3) Ulcerative colitis: As above history of ulcerative colitis and status post total colectomy HPI secondary to adhesions Positive colitis seems to be stable Other medical condition remains stable (4) History of total colectomy: Secondary to ulcerative colitis Likely to be discharged this afternoon Total Time Total Time Spent Total Time Spent (In Minutes): 35 minutes Total Time Includes: Examination of the Patient, Discharge Planning, Medication Reconciliation and Communication With Other Providers Discharge Plan Discharge Items Patient Disposition: Home - Self-Care Reason For Visit: ABD PAIN Discharge Diagnosis: SBO likely secondary to adhesions-resolved Condition: Good Discharge Goals: Decrease discomfort and Improve function Activity: Resume your previous activity Non-emergency contact: Primary Care Provider Call non-emergency contact if: you have any medication questions and your symptoms worsen Follow-up/Referrals: SELF,REFERRED [Staff Physician] - (Please make an appointment with your primary care provider within 7 days) Diet: Regular and Low Fiber Addtl Provider Instructions: Please drink plenty of fluid to try to avoid constipation Prescriptions: Continue multivitamin Tablet 1 tab PO DAILY RF: 0 citalopram 40 mg tablet 20 mg PO DAILY RF: 0 bupropion HCl 100 mg tablet sustained-release 12 hr 200 mg PO BID RF: 0 lisinopril 10 mg tablet 10 mg PO DAILY RF: 0 folic acid 1 mg tablet 1 mg PO DAILY RF: 0 cholecalciferol (vitamin D3) 1,000 unit capsule 1,000 unit PO DAILY RF: 0 calcium carbonate-vitamin D3 500 mg(1,250mg) -200 unit tablet 1 tab PO BID RF: 0 loperamide 2 mg Tablet 2 mg PO TID PRN (Reason: Diarrhea) RF: 0 albuterol sulfate 90 mcg/actuation Hfa Aerosol Inhaler 2 puff INHALATION Q4 PRN (Reason: Shortness Of Breath Or Wheezing) RF: 0 Stand-Alone Forms: [facility] Discharge Orders: Discharge Order (Routine); Ordered 04/15/18 Ordered By: Ifeanyi Crabtree Admission Data Admit Date/Time: 04/13/18 05:36 Attending Provider: Ifeanyi Crabtree Admit Provider: Mikey Nguyen Primary Care Provider: Marisol Noel Other Providers: Mikey Nguyen ; Tyshawn Vega ; Nancy Merritt ; Danita Trotter ; Alfredo Castellanos ; Dontrell Navarro ; Debby Sauceda ; Isak Olson ; Ziggy Diaz ; Alison Hernandez ; Gigi Colmenares ; Eva Murry ; Irene Jaimes ; Pavan Aleman Jr ; Reena Cui Service: Surgical Services Other Interventions: Discharge Summary Assessment (RN) Last Done: 04/15/18 16:44 DC Date/Time DO NOT enter until pt leaves facility: 04/15/18 17:49
== END 2018-04-15 17:49 | disposition home or self-care (01) | DRG 389 ==
LOC: ED 01:40 → 3W 05:36
DX: J45.909 Unspecified asthma, uncomplicated; Z87.19 Personal history of other diseases of the digestive system; Z91.048 Other nonmedicinal substance allergy status; F41.9 Anxiety disorder, unspecified; Z98.1 Arthrodesis status; K56.50 Intestinal adhesions [bands], unspecified as to partial versus complete obstruction; E11.9 Type 2 diabetes mellitus without complications; Z90.49 Acquired absence of other specified parts of digestive tract; Z79.899 Other long term (current) drug therapy; Z68.41 Body mass index [BMI] 40.0-44.9, adult; Z87.891 Personal history of nicotine dependence; E66.9 Obesity, unspecified; Z88.5 Allergy status to narcotic agent; I10 Essential (primary) hypertension; Z82.5 Family history of asthma and other chronic lower respiratory diseases